=== PATIENT | female | born 1985 | race Caucasian/White ===

== ENCOUNTER 2023-02-11 23:22 | Emergency (ER) | payer MEDICAID, SELFPAY ==
[2023-02-11 23:27] VITALS: BP 131/85; PULSE 81; RESP 16; TEMP 36.8; O2SAT 97; BMI 17.3
--- NOTE | 2023-02-11 23:36 | XRR_ITS ---
PROCEDURE INFORMATION: Exam: XR Right Forearm Exam date and time: 02/11/2023 11:42 PM Age: 37 years old Clinical indication: Injury or trauma; Other: Laceration; Arm, lower; Right TECHNIQUE: Imaging protocol: Radiologic exam of the right forearm. Views: 2 views. COMPARISON: No relevant prior studies available. FINDINGS: Bones/joints: Normal. Soft tissues: Apparent laceration over the mid volar aspect of the forearm without radiodense foreign body, fracture or dislocation. XR/XR forearm RT 2V [id number] IMPRESSION: Apparent laceration over the mid volar aspect of the forearm without radiodense foreign body, fracture or dislocation.
--- NOTE | 2023-02-11 23:38 | ED_ITS ---
HPI - Wound/Laceration General: Chief Complaint: Wound/Laceration Stated Complaint: Cut Rt arm Time Seen by Provider: 02/11/23 23:23 Source: patient Mode of arrival: ambulatory Limitations: no limitations History of Present Illness: 37-year-old female states she [place]. She does have a roughly 2 cm laceration of the right forearm her friends had placed superglue over the wound does have superglue over the wound. She is having some pain she is unsure when her last tetanus was. Denies any other injuries. Associated symptoms: Denies fever(s) Review of Systems Const: Denies: fever(s) ENMT: Denies: throat pain Card: Denies: chest pain Resp: Denies: dyspnea GI: Denies: abdominal pain Musc: Reports: extremity pain Skin/Breast: Denies: rash Neuro: Denies: headache(s) Physical Exam Const: COMMON NORMALS: no acute distress and patient oriented x3 HENMT: COMMON NORMALS: normocephalic HEAD & SCALP: normocephalic Eye: COMMON NORMALS: conjunctivae normal CONJUNCTIVA: Yes conjunctivae normal Neck/C-Spine: COMMON NORMALS: supple Chest: COMMONS NORMALS: normal inspection of the chest Resp: COMMON NORMALS: normal respiratory effort GI: INSPECTION: Yes normal to inspection Extremity: OTHER: 2 cm laceration to right forearm distal pulses sensation intact does have superglue over the wound no bleeding at this time Neuro: COMMON NORMALS: patient oriented x3 Psych: COMMON NORMALS: mental status grossly normal Skin: COMMON NORMALS: no rashes or lesions noted GENERAL SKIN EXAM: no rashes or lesions noted Course Vital Signs: Vital signs: Vital Signs Temperature 98.3 F 02/11/23 23:27 Pulse Rate 81 02/11/23 23:27 Respiratory Rate 16 02/11/23 23:27 Blood Pressure 131/85 02/11/23 23:27 Pulse Oximetry 97 02/11/23 23:27 Oxygen Delivery Me thod Room Air 02/11/23 23:27 MDM - Wound/Laceration Medical Decision Making Patient presents here with a laceration she is no signs of arterial injury x-ray shows no foreign body she is already superglue to it as a copious amount of superglue was unable to peel superglue just left in place lacerations only [address] her on antibiotics inform if she has any signs of infection return immediately she understands agrees to plan. Medical Records I reviewed the patient's medical records. Imaging Data xr r forearm: I personally reviewed and interpreted this imaging study as follows: My impression: no acute abnormality Discharge Plan Discharge Patient Disposition: Home Clinical Impression: Laceration Condition: Stable Prescriptions: New cephalexin 500 mg capsule 500 mg PO TID 7 Days Qty: 21 0RF Naprosyn 500 mg tablet 500 mg PO BID PRN (Reason: pain) Qty: 20 0RF No Action cyclobenzaprine 10 mg tablet 10 mg PO TID PRN citalopram 10 mg tablet 10 mg PO DAILY 30 Days Qty: 30 3RF Discharge Orders: Discharge ED (Routine); Ordered 02/11/23 Ordered By: Ada Thompson Referrals: Juan Carlos Johnson DO [Primary Care Provider] - 1-3 days Discharge Diet: Advance as tolerated Discharge Activity: Resume usual activity Patient Instructions: Laceration (ED) Coding Level of Care Code 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
[2023-02-11] MEDS: tetanus-dipt-pertussis 0.5 mL SDV IM (23:47)
[2023-02-11] MEDS: cefTRIAXone 1,000 MG in water for injection-sterile 2.1 ML 2.1 MG IM (23:47)
[2023-02-11] MEDS: HYDROcodone-acetaminophen 7.5-325 mg Tablet 1 TAB PO (23:48)
[2023-02-12 00:19] VITALS: BP 131/85; PULSE 81; RESP 16; TEMP 36.8; O2SAT 97
== END 2023-02-12 00:21 | disposition home or self-care (01) ==
PROVIDERS: Emergency Provider Emergency Medicine; PCP Family Medicine
DX: S51.811A Laceration without foreign body of right forearm, initial encounter (principal); W26.8XXA Contact with other sharp object(s), not elsewhere classified, initial encounter; Y92.828 Other wilderness area as the place of occurrence of the external cause; Z23 Encounter for immunization
CPT/HCPCS: 73090; 90471; 90715; 96372; 99284; J0696

== ENCOUNTER → 2023-03-17 09:46 | Outpatient (BNVA) | payer MEDICAID, SELFPAY | PROVIDERS: PCP Family Medicine; Visit Provider Nurse Practitioner Family | DX: J02.9 Acute pharyngitis, unspecified (principal) | CPT/HCPCS: 87880 ==

== ENCOUNTER 2023-04-10 23:02 | Emergency (ER) | payer MEDICAID, SELFPAY ==
[2023-04-10 23:08] VITALS: BP 100/66; PULSE 108; RESP 16; TEMP 37.4; O2SAT 98; BMI 15.0
--- NOTE | 2023-04-10 23:54 | ED_ITS ---
HPI - General Adult General: Chief complaint: General Medical Stated complaint: n/v/d Time Seen by Provider: 04/10/23 23:33 History of Present Illness: Patient comes in today for 3-day history of nausea vomiting and diarrhea. Patient does admit that she had went camping last and Saturday. Patient had a history of prior severe nausea vomiting diarrhea. Patient denies any o ther chronic medical problems. Patient denies any routine medicines. Patient does use marijuana. Patient reports no blood in the vomit or stool. Patient appears unwell. Patient is very small framed. Patient reports no other abnormal symptoms. Associated symptoms: Reports nausea and vomiting; Deny chest pain, dyspnea or rash Review of Systems General: Reports: 10 or more systems reviewed and unremarkable except in HPI and below Const: Reports: chills Card: Denies: chest pain Resp: Denies: dyspnea GI: Reports: nausea, vomiting and diarrhea : Denies: difficulty voiding Musc: Denies: neck pain or back pain Skin/Breast: Denies: rash Physical Exam Const: COMMON NORMALS: alert HENMT: COMMON NORMALS: normocephalic HEAD & SCALP: normocephalic Neck/C-Spine: COMMON NORMALS: full ROM Resp: COMMON NORMALS: normal respiratory effort and clear to auscultation bilaterally AUSCULTATION: clear to auscultation bilaterally Cardio: COMMON NORMALS: regular rate and regular rhythm RATE: regular rate RHYTHM: regular rhythm GI: COMMON NORMALS: Soft to palpation PALPATION: Yes Soft to palpation and Yes Tenderness to palpation present (GI) Back/Pelvis: COMMON NORMALS: thoracic and lumbar spine normal to inspection Extremity: COMMON NORMALS: full ROM Neuro: SENSORIUM/ORIENTATION: Yes alert Skin: COMMON NORMALS: turgor normal GENERAL SKIN EXAM: turgor normal Course Vital Signs: Vital signs: Vital Signs Temperature 99.3 F 04/10/23 23:08 Pulse Rate 86 04/11/23 02:59 Respiratory Rate 22 H 04/11/23 02:59 Blood Pressure 110/58 04/11/23 02:59 Pulse Oximetry 100 04/11/23 02:59 Oxygen Delivery Me thod Room Air 04/11/23 01:03 MDM - General Adult Medical Decision Making 37-year-old female comes in today with persistent nausea vomiting and diarrhea x3 days. Patient has had a recent camping trip last and Saturday patient appears unwell. Abdomen soft with generalized tenderness. Bowel sounds are active. Skin is warm and dry. Vital signs are normal except for some mild elevation in pulse at 108. Differential diagnosis includes appendicitis, pancreatitis, gallbladder disease, gastroenteritis, infectious colitis. Patient's labs suggested dehydration with a potassium of 3.2 and a calcium of 8. Patient's leukocytes were little elevated at 13.1. Due to patient's recent history of camping I have strong suspicion for possible foodborne illness or other water-based illness. Patient be started on Cipro and Flagyl to cover common pathogens. Patient was given 1 L of IV fluids medication for nausea and pain. Patient had improvement was able to tolerate water by mouth. We will continue patient on Cipro and Flagyl at home 50 probenecid for nausea vomiting and for pain. Patient will monitor for worsening symptoms return as needed for further evaluation. Lab Data 04/11/23 01:17 04/11/23 02:08 Radiology Impressions KUB X-Ray 04/11/23 01:06 IMPRESSION: No acute findings. Laboratory Results WBC 13.1 10^3/uL (4.0-10.0) H 04/11/23 01:17 RBC 4.34 10^6/uL (4.1-5.3) 04/11/23 01:17 Hgb 12.4 g/dL (11.5-15.3) 04/11/23 01:17 Hct 36.9 % (37.0-47.0) L 04/11/23 01:17 MCV 85.0 fl (81-99) 04/11/23 01:17 MCH 28.6 pg (28.0-34.0) 04/11/23 01:17 MCHC 33.6 g/dL (30.0-36.0) 04/11/23 01:17 RDW 13.4 % (12.1-15.1) 04/11/23 01:17 Plt Count 176 10^3/cmm (130-400) 04/11/23 01:17 MPV 11.8 fL (7.4-10.4) H 04/11/23 01:17 Neut % (Auto) 78.1 % 04/11/23 01:17 Lymph % (Auto) 7.8 % 04/11/23 01:17 Mcnairy % (Auto) 13.2 % 04/11/23 01:17 Eos % (Auto) 0.0 % 04/11/23 01:17 Baso % (Auto) 0.4 % 04/11/23 01:17 Neut # (Auto) 10.27 10^3/uL (1.8-7.7) H 04/11/23 01:17 Lymph # (Auto) 1.0 10^3/uL (0.8-4.8) 04/11/23 01:17 Mcnairy # (Auto) 1.7 10^3/uL (0.2-0.9) H 04/11/23 01:17 Eos # (Auto) 0.0 10^3/uL (0.0-0.8) 04/11/23 01:17 Baso # (Auto) 0.1 10^3/uL (0.0-0.1) 04/11/23 01:17 Nucleated RBC % (auto) 0 % 04/11/23 01:17 Nucleated RBCs # 0.0 /100WBC 04/11/23 01:17 Sodium 136 mmol/L (136-145) 04/11/23 02:08 Potassium 3.2 mmol/L (3.5-5.1) L 04/11/23 02:08 Chloride 101 mmol/L (98-107) 04/11/23 02:08 Carbon Dioxide 23 mmol/L (22-29) 04/11/23 02:08 Anion Gap 15.2 (5-19) 04/11/23 02:08 BUN 11 mg/dL (6-20) 04/11/23 02:08 Creatinine 0.8 mg/dL (0.5-0.9) 04/11/23 02:08 GFR Calculation 81.2 mL/min (90-130) L 04/11/23 02:08 Glucose 107 mg/dL (65-115) 04/11/23 02:08 Calculated Osmolality 282 mOsm/kg (285-295) L 04/11/23 02:08 Calcium 8.0 mg/dL (8.5-10.5) L 04/11/23 02:08 Total Bilirubin 0.5 mg/dL (0.15-1.2) 04/11/23 02:08 AST 24 U/L (0-32) 04/11/23 02:08 ALT 17 U/L (0-33) 04/11/23 02:08 Alkaline Phosphatase 113 U/L (35-105) H 04/11/23 02:08 C-Reactive Protein 186.8 mg/L (0.0-4.9) H 04/11/23 02:08 Total Protein 6.7 g/dL (6.6-8.7) 04/11/23 02:08 Albumin 3.2 g/dL (3.5-5.2) L 04/11/23 02:08 Globulin 3.5 g/dL (1.3-4.6) 04/11/23 02:08 Lipase 8 U/L (13-60) L 04/11/23 02:08 Discharge Plan Discharge Patient Disposition: Home Clinical Impression: Gastroenteritis Condition: Stable Prescriptions: New ondansetron 4 mg tablet,disintegrating 4 mg PO Q8H PRN (Reason: nausea and vomiting) Qty: 10 0RF hydrocodone-acetaminophen 5-325 mg tablet 1 tab PO Q8H PRN (Reason: pain (scale score 7-10)) Qty: 6 0RF ciprofloxacin HCl 250 mg tablet 250 mg PO BID Qty: 10 0RF metronidazole 250 mg tablet 250 mg PO BID 5 Days Qty: 10 0RF No Action baclofen 5 mg tablet 5 mg PO DAILY amoxicillin 500 mg tablet 500 mg PO TID 10 Days Qty: 30 0RF Naprosyn 500 mg tablet 500 mg PO BID PRN (Reason: pain) Qty: 20 0RF Discharge Orders: Discharge ED (Routine); Ordered 04/11/23 Ordered By: Milton Walker Discharge Diet: Advance as tolerated Discharge Activity: Increase activity as tolerated Patient Instructions: Gastroenteritis (ED) Activity Restrictions/Additional Instructions: Home and rest. Drink plenty of water and fluids. Make sure to add some electrolyte solution like Pedialyte or watered-down Gatorade. Make sure to do this with diarrhea. Take antibiotic Cipro 250 mg 1 tablet twice a day for the next 5 days. Take metronidazole 250 mg twice a day daily for the next 5 days. Use ondansetron 4 mg every 8 hours as needed for nausea and vomiting. Use hydr ocodone for abdominal pain. Return to ER for worsening symptoms such as blood in vomit or stool, no urine output within 12 hours, uncontrolled abdominal pain, or new concerns. 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
[2023-04-11] MEDS: sodium chloride 0.9% 1,000 ML 999 ML IV (00:54)
[2023-04-11 00:57] VITALS: RESP 19
[2023-04-11] MEDS: fentaNYL 50 mcg/mL INJ 2mL 38 MCG IVP (00:57)
[2023-04-11] MEDS: ondansetron 2 mg/ML SDV 2 mL 4 MG IVP (00:59)
[2023-04-11 01:03] VITALS: BP 111/68; PULSE 110; RESP 19; O2SAT 100
--- NOTE | 2023-04-11 01:06 | XRR_ITS ---
PROCEDURE INFORMATION: Exam: XR Abdomen Exam date and time: 04/11/2023 1:53 AM Age: 37 years old Clinical indication: Nausea and vomiting; Prior surgery; Surgery date: 6+ months; Surgery type: C-sections; Additional info: N/v/d TECHNIQUE: Imaging protocol: Radiologic exam of the abdomen. Views: Frontal supine view of the abdomen. 1 View. COMPARISON: No relevant prior studies available. FINDINGS: Gastrointestinal tract: No small bowel dilation or free air identified. Bones/joints: Mild scoliosis. XR/XR KUB [id number] IMPRESSION: No acute findings.
[2023-04-11 01:21] LABS: Basophils # 0.1 10^3/uL (0.0-0.1); Basophils % 0.4 %; Hematocrit 36.9 % (37.0-47.0); Hemoglobin 12.4 g/dL (11.5-15.3); Lymphocytes % 7.8 %; Mean Corpuscular HGB Conc 33.6 g/dL (30.0-36.0); Mean Corpuscular Hemoglobin 28.6 pg (28.0-34.0); Mean Platelet Volume 11.8 fL (7.4-10.4); Monocytes # 1.7 10^3/uL (0.2-0.9); Monocytes % 13.2 %; Neutrophils # 10.27 10^3/uL (1.8-7.7); Neutrophils % 78.1 %; Nucleated Red Blood Cells % 0 %; Platelet Count 176 10^3/cmm (130-400); Red Blood Count 4.34 10^6/uL (4.1-5.3); Red Cell Distribution Width 13.4 % (12.1-15.1); White Blood Count 13.1 10^3/uL (4.0-10.0)
[2023-04-11 02:39] LABS: Alanine Aminotransferase 17 U/L (0-33); Albumin Level 3.2 g/dL (3.5-5.2); Alkaline Phosphatase 113 U/L (35-105); Blood Urea Nitrogen 11 mg/dL (6-20); C Reactive Protein 186.8 mg/L (0.0-4.9); Carbon Dioxide 23 mmol/L (22-29); Chloride 101 mmol/L (98-107); Globulin 3.5 g/dL (1.3-4.6); Glomerular Filtration Rate 81.2 mL/min (90-130); Glucose 107 mg/dL (65-115); Lipase 8 U/L (13-60); Osmolality Calculated 282 mOsm/kg (285-295); Sodium 136 mmol/L (136-145); Total Bilirubin 0.5 mg/dL (0.15-1.2); Total Protein 6.7 g/dL (6.6-8.7)
[2023-04-11 02:47] LABS: Aspartate Amino Transferase 24 U/L (0-32)
[2023-04-11 02:48] LABS: Anion Gap 15.2 (5-19); Potassium 3.2 mmol/L (3.5-5.1)
[2023-04-11 02:59] VITALS: BP 110/58; PULSE 86; RESP 22; O2SAT 100
[2023-04-11] MEDS: metroNIDAZOLE 500 MG Tablet 250 MG PO (03:05)
[2023-04-11] MEDS: ciprofloxacin 500 mg Tablet PO (03:06)
[2023-04-11 06:53] LABS: HCG, Serum Qual Negative (Negative)
== END 2023-04-11 03:11 | disposition home or self-care (01) ==
PROVIDERS: Emergency Provider Nurse Practitioner Family
DX: K52.9 Noninfective gastroenteritis and colitis, unspecified (principal)
CPT/HCPCS: 36415; 74018; 80053; 83690; 84703; 85025; 86140; 96374; 96375; 99285; J2405; J3010; J7030